=== PATIENT | male | born 1965 | race Caucasian/White ===

== ENCOUNTER 2022-05-07 22:12 | Emergency (ER) | payer MEDICAID, SELFPAY ==
[2022-05-07 22:13] VITALS: BP 115/70; PULSE 79; RESP 18; TEMP 36.4; O2SAT 96; BMI 24.4
--- NOTE | 2022-05-07 22:24 | ED.VIS.CHEST ---
HPI History of Present Illness Chief Complaint: Chest Pain Onset/Context/Timing Onset: Today and Hours (8) Activity at onset: sudden Timing: Intermittent Quality: Positive for Aching, Burning, Pressure, Sharp and Tightness Location: Left Parasternal and Left Chest Worsened By: Nothing Relieved By: Nothing Associated Symptoms: Positive for Nausea, Lightheadedness and Acid Reflux; Negative for Vomiting, Diaphoresis, Dyspnea, Cough, Fever or Palpitations Narrative Narrative: Presents with chest pain that began today. Patient states she was at work when the pain began. 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 Patient states the pain has been intermittent. Patient states it is over the left chest and left parasternal area. Patient states nothing makes it better nothing makes it worse. Patient admits to an episode of nausea but denies any vomiting. Patient admits to some lightheadedness and reflux. Patient states he did take some antacids but those did not help. Patient denies any fevers or cough. Patient denies any shortness of breath or diaphoresis. CVD Risk Factors: Positive for Family History 1' </=55 and Smoking; Negative for Hypertension, Diabetes or Hypercholesterolemia PE Risk Factors: Negative for Recent Travel/Surgery, Recent Immobilization, Prior DVT or PE or Cancer PFSH PFSH Medical History no medical history no medical history Home Medications NK 05/07/22 [History Last Taken Unknown] Allergy/AdvReac Type Severity Reaction Status Date / Time No Known Allergies Allergy Verified 05/07/22 22:12 Surgical History no surgical history no surgical history Social History Smoking Status: Light Smoker (<10/day) ROS ROS ED Constitutional Constitutional ED: Denies chills or fever(s) Eyes Eyes: Denies blurry vision or change in vision ENT ENT ED: Denies rhinorrhea or sore throat Cardiovascular Cardiovascular: Reports chest pain; Denies palpitations Respiratory/Chest Respiratory/Chest: Denies cough or dyspnea Gastrointestinal Gastrointestinal: Reports nausea; Denies abdominal pain or vomiting Genitourinary Genitourinary ED: Denies dysuria or hematuria Musculoskeletal Musculoskeletal: Denies back pain or neck pain Integumentary Denies abscess or rash Neurologic Neurologic: Denies headache(s) or weakness Allergic/Immunologic Allergic/Immunologic ED: Denies mouth swelling or urticaria EXAM Physical Exam Const Vital Signs: 12/21/22 22:13 05/07/22 22:18 05/07/22 22:39 Temperature 97.6 F L Temperature Source Temporal Pulse Rate 79 Respiratory Rate 18 Respiratory Effort Normal Non-Labored Blood Pressure 115/70 Blood Pressure Mean 85 Pulse Ox 96 Oxygen Delivery Method Room Air Room Air Oxygen Flow Rate (L/min) 99 05/08/22 00:28 Temperature Temperature Source Pulse Rate 62 Respiratory Rate 19 H Respiratory Effort Blood Pressure Blood Pressure Mean Pulse Ox 98 Oxygen Delivery Method Room Air Oxygen Flow Rate (L/min) Positive well nourished and well developed General Appearance ED: well developed and NAD HEENT normocephalic and atraumatic Eyes PERRL and EOMs intact bilaterally Neck supple and no JVD Chest Wall inspection of chest normal and palpation of chest normal Resp normal respiratory effort and clear to auscultation bilaterally Effort and Inspection: Negative for respiratory distress Cardio regular rate, regular rhythm and no murmurs GI normal to inspection, nondistended, normoactive bowel sounds, soft to palpation, non-tender and non-distended Extremity normal to inspection General Extremety ED: Negative for edema or tenderness General Extremity: Negative for edema Neuro oriented x3, CN's II-XII intact bilaterally and no sensory deficits noted Sensorium / Orientation: awake and alert Motor Exam: strength 5/5 throughout Psych mental status grossly normal Heart Score History: Slightly/Non-Suspicious ECG: Normal Age: >45 - <65 years Risk Factors: 1 or 2 Risk Factors Troponin: </= Normal Limit Score: 2 MDM MDM MDM Narrative Medical decision making narrative: Patient was given aspirin and nitroglycerin here. EKG was obtained. On my interpretation, it showed a normal sinus rhythm with a rate of 76. CA interval, QRS interval, and QTc intervals were all normal. [place] was normal. There are no acute ST or T wave changes. CBC was within normal limits. Basic metabolic profile was within normal limits. Anion gap was normal. Initial high-sensitivity troponin was normal at 4. Portable 1 view chest x-ray was obtained. On my interpretation, lung aragon are clear. There is normal cardiac silhouette. Bony thorax is normal. There is no acute process noted. Radiologist also interpreted the x-ray and agrees. 2-hour repeat high-sensitivity troponin was also normal at 4. Patient has a HEART score of 2. Patient was advised that this is low risk for acute cardiac event. Patient was instructed to follow-up with his primary care physician in 5 to 7 days. Patient understood and was agreeable with the plan. All questions were answered. Lab Data Attestation: I reviewed the patient's lab results. Labs: Laboratory Results - last 24 hr 05/07/22 05/07/22 05/08/22 22:19 22:19 00:16 WBC 7.4 RBC 4.65 Hgb 14.6 Hct 43.6 MCV 93.8 MCH 31.4 MCHC 33.5 RDW Std Deviation 41.7 RDW Coeff of Jarrod 12.0 Plt Count 371 MPV 9.8 Immature Gran % (Auto) 0.300 Neut % (Auto) 48.6 Lymph % (Auto) 33.9 [place] % (Auto) 12.6 H Eos % (Auto) 3.9 Baso % (Auto) 0.7 Absolute Neuts (auto) 3.6 Absolute Lymphs (auto) 2.52 Nucleated RBC % 0 Sodium 139 Potassium 3.8 Chloride 105 Carbon Dioxide 32.0 Anion Gap 2 L BUN 16 Creatinine 1.08 Estim Creat Clear Calc 83.83 Est GFR (MDRD) Af Amer 91 Est GFR (MDRD) Non-Af 75 BUN/Creatinine Ratio 14.8 Glucose 106 Calcium 9.8 Troponin I High Sens 4 4 Radiography Diagnostic Testing: Clinical Impression(s) from Imaging Studies Chest X-Ray 05/07/22 22:53 IMPRESSION: No radiographic evidence of acute cardiopulmonary disease. Electronically Signed: Azam Conway MD at 23:15 EST , EKG Initial EKG: Attestation: I personally reviewed and interpreted this EKG as follows: Interpretation: Sinus Rhythm (76) and No Acute Injury Pattern Prior EKG tracings: not available for review Discharge Plan Triage Chief Complaint: Chest Pain ED Provider: Octavio Mcmillan Dx/Rx/DC Orders Clinical Impression: Chest pain of uncertain etiology, Tobacco use Instructions: ED Chest Pain, Uncertain Cause Prescriptions: No Action NK Primary Care Provider: Tim Pete Referrals: Tim Pete MD [Primary Care Provider] - 5-7 Days Disposition Disposition: Home, Self Care
--- NOTE | 2022-05-07 22:29 | EKG12_ITS ---
Test Reason : CP Blood Pressure : / mmHG Vent. Rate : 076 BPM Atrial Rate : 076 BPM P-R Int : 152 ms QRS Dur : 090 ms QT Int : 350 ms P-R-T Axes : 072 076 063 degrees QTc Int : 393 ms Normal sinus rhythm Normal ECG Confirmed by MADISON WOODARD, DASHAWN ([id number]), non linear editor PEGGY RAMIREZ ([id number]) on 05/08/2022 10:45:05 AM Referred By: YOLANDA Confirmed By:DASHAWN WALLACE MD
[2022-05-07] MEDS: Aspirin 81 MG TAB.CHEW 324 MG PO (22:39)
[2022-05-07 22:53] LABS: Absolute Lymphocyte Count 2.52 X10^3/uL (0.83-4.51); Absolute Neutrophil Count 3.6 X10^3/uL (2.0-7.7); Basophil# 0.05 X10^3/uL; Basophil% 0.7 % (0-1); Eosinophil# 0.29 X10^3/uL; Eosinophils% 3.9 % (0-5); Hematocrit 43.6 % (40-54); Hemoglobin 14.6 g/dL (13.0-16.5); Lymphocyte # 2.52 X10^3/ul (0.83-4.51); Lymphocyte % 33.9 % (19-41); Mean Corp Hgb Conc 33.5 g/dL (32-36); Mean Corpuscular Hgb 31.4 pg (27.0-32.0); Mean Corpuscular Volume 93.8 fL (80-94); Mean Platelet Vol. 9.8 fl (6.2-12.0); Monocyte# 0.94 X10^3/uL; Monocyte% 12.6 % (0-10); NRBC Flagged by Analyzer 0 % (0-5); Neutrophil # 3.62 X10^3/uL (2.7-7.7); Neutrophil % 48.6 % (47-70); Platelet Count 371 K/mm3 (150-450); RBC Distribution Width SD 41.7 fl (35.1-43.9); Red Blood Count 4.65 M/mm3 (4.6-6.2); White Blood Count 7.4 K/mm3 (4.4-11.0)
--- NOTE | 2022-05-07 22:53 | RAD_ITS ---
EXAM: XR CHEST, 1 VIEW CLINICAL INDICATION: chest pain TECHNIQUE: Frontal view of the chest. This report was created using [employer] report generation technology. COMPARISON: None. FINDINGS: LUNGS AND PLEURAL SPACES: Unremarkable. No consolidation or edema. No pneumothorax. No effusion. HEART: Unremarkable. Cardiac silhouette not enlarged. MEDIASTINUM: Central airways and mediastinal contour are unremarkable. BONES/JOINTS: Unremarkable. SOFT TISSUES: Unremarkable. RAD/Chest 1 View (Portable) IMPRESSION: No radiographic evidence of acute cardiopulmonary disease. Electronically Signed: Azam Conway MD at 23:15 [facility] ,
--- NOTE | 2022-05-07 22:58 | ED.RN ---
Patient declines CP at this time so nitro not given.
[2022-05-07 23:15] LABS: Anion Gap 2 (5-15); BUN 16 mg/dL (7-18); BUN/Creat Ratio 14.8 RATIO (10-20); Calcium,Total 9.8 mg/dL (8.5-10.1); Chloride 105 mmol/L (98-107); Creatinine, Serum 1.08 mg/dL (0.70-1.30); EST Glomerular Filtration Rate 75 mL/min (>60); Est Glom Filt Rate - Afr Amer 91 mL/min (>60); Estimated Creatinine Clearance 83.83 ml/min; Glucose 106 mg/dL (74-106); Potassium 3.8 mmol/L (3.5-5.1); Sodium Level 139 mmol/L (136-145); Troponin-I HS (w/2H Reflex) 4 pg/mL (3.0-78.0)
[2022-05-08 00:28] VITALS: PULSE 62; RESP 19; O2SAT 98
[2022-05-08 00:49] LABS: Reflex Troponin-HS? (from REC) Y
[2022-05-08 01:17] LABS: Troponin-I HS 4 pg/mL (3.0-78.0)
[2022-05-08 01:28] VITALS: PULSE 68; RESP 15; O2SAT 99
== END 2022-05-08 01:33 | disposition home or self-care (01) ==
PROVIDERS: Emergency Provider Emergency Medicine; PCP Family Medicine; Visit Provider Emergency Medicine
DX: R07.9 Chest pain, unspecified (principal); F17.210 Nicotine dependence, cigarettes, uncomplicated; R11.0 Nausea
CPT/HCPCS: 71045; 80048; 84484; 85025; 93005; 99285; A4216